=== PATIENT | female | born 1965 | race Caucasian/White ===

== ENCOUNTER 2018-02-25 11:38 | Inpatient (IN) | payer MEDICARE, MEDICAID ==
[~2018-02-25] VITALS: Ht 152.4 cm; Wt 44.0 kg
[2018-02-25] VITALS (7 sets, daily range): BP systolic 85–124; BP diastolic 52–67; PULSE 76–102; RESP 12–21; TEMP 97.5–99; O2SAT 93–96
[2018-02-25] MEDS ORDERED: cefTRIAXone INJ 2,000 MG in SODIUM CHLORIDE 0.9% INJ 100 ML IV STA (11:43)
[2018-02-25] MEDS ORDERED: AZITHROMYCIN INJ 500 MG in SODIUM CHLOR 0.9% 250 ML INJ 250 ML IV STA (11:43)
[2018-02-25] MEDS ORDERED: SODIUM CHLOR 0.9% 1000 ML INJ 1,000 ML IV ONE (11:43)
[2018-02-25] MEDS ORDERED: SODIUM CHLOR 0.9% 1000 ML INJ 800 ML IV ONE (11:43)
--- NOTE | 2018-02-25 11:57 | PD ---
HPI Chief Complaint: Respiratory Symptoms Time Seen by Provider: 11:41 Travel History International Travel<30 days: No Contact w/Intl Traveler<30days: No Traveled to known affect area: No History of Present Illness HPI Patient is a 53-year-old female with history of COPD, chronic neck pain who presents the emergency room from same-day surgery for evaluation of hypoxia as well as multilobar pneumonia. Patient was scheduled to have cervical fusion today with Dr. Gonzalez, patient was found to be hypoxic with a pulse ox of 88% on room air. Apparently, a chest ray was obtained and patient was found to have multilobar pneumonia. Patient was sent to the emergency room for evaluation. Patient reports that she has had a nonproductive cough for the past few days, denies any fevers or chills. Patient was found to be febrile at same day surgery with a temperature of 101. Patient was not given any antipyretics prior to being sent down to the emergency room. PFSH Past Medical History Cardiovascular Problems: Yes (CHF) Cerebrovascular Accident: Yes Respiratory: Yes (COPD) ?: Not Past Surgical History Hysterectomy: Yes Social History Tobacco Use: Yes Allergies-Medications (Allergen,Severity, Reaction): Coded Allergies: aspirin (Verified Allergy, Unknown, 02/25/18) gabapentin (Verified Allergy, Unknown, 02/25/18) Uncoded Allergies: iv contrast dye (Allergy, Unknown, 02/25/18) Reported Meds & Prescriptions Reported Meds & Active Scripts Active Reported Anoro Ellipta Inh (Umeclidinium/Vilanterol) 62.5-25 Mcg/Act Aero 1 Puff INH DAILY Trazodone (Trazodone HCl) 100 Mg Tablet 100 Mg PO HS Potassium Chloride ER (Potassium Chloride) 10 Meq Cap 10 Meq PO DAILY Naproxen 500 Mg Tab 500 Mg PO BID Morphine ER (Morphine Sulfate) 30 Mg Tab 30 Mg PO Q8H Amitiza (Lubiprostone) 8 Mcg Cap 8 Mg PO BID Duoneb (Ipratropium-Albuterol Neb) 0.5-2.5 Mg/3 Ml Neb 1 Nebule INH Q8HR NEB Hydrocodone-Acetaminophen 10-325 mg Tab 1 Tab PO Q8HR PRN Furosemide 20 Mg Tab 20 Mg PO DAILY Baclofen 10 Mg Tab 10 Mg PO TID Alprazolam 2 Mg Tab 2 Mg PO HS Proventil Hfa 6.7 GM Inh (Albuterol Sulfate) 90 Mcg/Act Aer 2 Puff INH Q6H PRN Review of Systems General / Constitutional: Positive: Fever Eyes: No: Visual changes HENT: No: Headaches Cardiovascular: No: Chest Pain or Discomfort Respiratory: Positive: Cough, Wheezing, No: Shortness of Breath Gastrointestinal: No: Abdominal Pain Genitourinary: No: Dysuria Musculoskeletal: No: Pain Skin: No Rash Neurologic: No: Weakness Psychiatric: No: Depression Endocrine: No: Polydipsia Hematologic/Lymphatic: No: Easy Bruising Physical Exam Narrative GENERAL: Moderate distress SKIN: Focused skin assessment warm/dry. HEAD: Atraumatic. Normocephalic. EYES: Pupils equal and round. No scleral icterus. No injection or drainage. ENT: No nasal bleeding or discharge. Mucous membranes pink and moist. NECK: Trachea midline. No JVD. CARDIOVASCULAR: Regular rate and rhythm. No murmur appreciated. RESPIRATORY: No accessory muscle use. Scattered wheezing. Breath sounds equal bilaterally. GASTROINTESTINAL: Abdomen soft, non-tender, nondistended. Hepatic and splenic margins not palpable. MUSCULOSKELETAL: No obvious deformities. No clubbing. No cyanosis. No edema. NEUROLOGICAL: Awake and alert. No obvious cranial nerve deficits. Motor grossly within normal limits. Normal speech. PSYCHIATRIC: Appropriate mood and affect; insight and judgment normal. Data Data Last Documented VS Vital Signs Date Time Temp Pulse Resp B/P (MAP) Pulse Ox O2 Delivery O2 Flow Rate FiO2 02/25/18 13:48 12 02/25/18 13:46 97.5 102 85/52 (63) 94 Nasal Cannula 2.00 Orders Orders Sepsis Workup Initiated (02/25/18 ) Complete Blood Count With Diff (02/25/18 11:42) Comprehensive Metabolic Panel (02/25/18 11:42) Prothrombin Time / Inr (Pt) (02/25/18 11:42) Act Partial Throm Time (Ptt) (02/25/18 11:42) Lactic Acid Sepsis Protocol (02/25/18 11:42) Magnesium (Mg) (02/25/18 11:42) Urinalysis - C+S If Indicated (02/25/18 11:42) Influenzae A/B Antigen (02/25/18 11:42) Blood Culture (02/25/18 11:42) Blood Glucose (02/25/18 11:42) Ecg Monitoring (02/25/18 11:42) Iv Access Insert/Monitor (02/25/18 11:42) Oximetry (02/25/18 11:42) Oxygen Administration (02/25/18 11:42) Ceftriaxone Inj (Rocephin Inj) (02/25/18 11:43) Azithromycin Inj (Zithromax Inj) (02/25/18 11:43) Sodium Chlor 0.9% 1000 Ml Inj (Ns 1000 M (02/25/18 11:43) Sodium Chlor 0.9% 1000 Ml Inj (Ns 1000 M (02/25/18 11:43) Arterial Blood Gas (Abg) (02/25/18 ) Chest, Single Ap (02/25/18 11:51) Acetaminophen (Tylenol) (02/25/18 12:00) Morphine Inj (Morphine Inj) (02/25/18 12:30) Methylprednisolone So Succ Inj (Solumedr (02/25/18 12:30) Albuterol-Ipratropium Neb (Duoneb Neb) (02/25/18 12:30) Admit Order (Ed Use Only) (02/25/18 13:59) Labs Laboratory Tests Test 02/25/18 12:00 02/25/18 12:03 02/25/18 12:28 White Blood Count 11.6 TH/MM3 Red Blood Count 4.01 MIL/MM3 Hemoglobin 10.6 GM/DL Hematocrit 32.6 % Mean Corpuscular Volume 81.1 FL Mean Corpuscular Hemoglobin 26.3 PG Mean Corpuscular Hemoglobin Concent 32.5 % Red Cell Distribution Width 15.5 % Platelet Count 203 TH/MM3 Mean Platelet Volume 8.5 FL Neutrophils (%) (Auto) 76.6 % Lymphocytes (%) (Auto) 13.5 % Monocytes (%) (Auto) 9.4 % Eosinophils (%) (Auto) 0.1 % Basophils (%) (Auto) 0.4 % Neutrophils # (Auto) 8.9 TH/MM3 Lymphocytes # (Auto) 1.6 TH/MM3 Monocytes # (Auto) 1.1 TH/MM3 Eosinophils # (Auto) 0.0 TH/MM3 Basophils # (Auto) 0.0 TH/MM3 CBC Comment DIFF FINAL Differential Comment Prothrombin Time 12.2 SEC Prothromb Time International Ratio 1.2 RATIO Activated Partial Thromboplast Time 35.4 SEC Blood Urea Nitrogen 13 MG/DL Creatinine 0.71 MG/DL Random Glucose 96 MG/DL Total Protein 6.4 GM/DL Albumin 2.8 GM/DL Calcium Level 8.4 MG/DL Magnesium Level 1.8 MG/DL Alkaline Phosphatase 71 U/L Aspartate Amino Transf (AST/SGOT) 14 U/L Alanine Aminotransferase (ALT/SGPT) 12 U/L Total Bilirubin 0.5 MG/DL Sodium Level 138 MEQ/L Potassium Level 3.7 MEQ/L Chloride Level 104 MEQ/L Carbon Dioxide Level 25.1 MEQ/L Anion Gap 9 MEQ/L Estimat Glomerular Filtration Rate 86 ML/MIN Lactic Acid Level 0.9 mmol/L Blood Gas Puncture Site RT RADIAL Blood Gas Patient Temperature 98.6 Blood Gas HCO3 27 mmol/L Blood Gas Base Excess 3.1 mmol/L Blood Gas Oxygen Saturation 84 % Arterial Blood pH 7.45 Arterial Blood Partial Pressure CO2 39 mmHg Arterial Blood Partial Pressure O2 55 mmHG Arterial Blood Oxygen Content 12.7 Vol % Arterial Blood Carboxyhemoglobin 5.4 % Arterial Blood Methemoglobin 0.8 % Blood Gas Hemoglobin 10.8 G/DL Blood Gas Inspired Oxygen 21 % Urine Color YELLOW Urine Turbidity CLEAR Urine pH 8.5 Urine Specific [place] 1.010 Urine Protein 30 mg/dL Urine Glucose (UA) NEG mg/dL Urine Ketones NEG mg/dL Urine Occult Blood TRACE Urine Nitrite NEG Urine Bilirubin NEG Urine Urobilinogen 1.0 MG/DL Urine Leukocyte Esterase NEG Urine RBC 5 /hpf Urine WBC LESS THAN 1 /hpf Urine Squamous Epithelial Cells <1 /hpf Microscopic Urinalysis Comment CATH-CULT NOT IND MDM Medical Decision Making Medical Screen Exam Complete: Yes Emergency Medical Condition: Yes Medical Record Reviewed: Yes Interpretation(s) Vital Signs Date Time Temp Pulse Resp B/P (MAP) Pulse Ox O2 Delivery O2 Flow Rate FiO2 02/25/18 11:49 22 93 Nasal Cannula 2.00 02/25/18 11:48 92 Nasal Cannula 2.00 02/25/18 11:42 99.0 95 21 105/61 (00) 93 Differential Diagnosis Pneumonia, pneumothorax, influenza, COPD exacerbation Narrative Course 53-year-old female who presents the emergency room for evaluation of multilobar pneumonia. Patient presents the emergency room hypoxic with a pulse ox of 88% on room air, she was febrile as per same day surgery, no antipyretics are given. Apparently patient did have an x-ray of her chest earlier today which showed multilobar pneumonia. Sepsis workup was initiated as patient was hypoxic and febrile upon presentation to ER. During the course of the patients emergency department visit, the patients history, examination, and differential diagnosis were reviewed with the patient. The patient was placed on a surveillance monitor with oximetry and frequent blood pressure monitoring. The patient had an IV access obtained and blood work sent for analysis. The patient was initially provided 30 cc/kg IV fluids, IV Rocephin as well as IV azithromycin. The patients laboratory studies were reviewed and remarkable for: Laboratory Tests Test 02/25/18 12:00 02/25/18 12:03 02/25/18 12:28 White Blood Count 11.6 TH/MM3 (4.0-11.0) Red Blood Count 4.01 MIL/MM3 (4.00-5.30) Hemoglobin 10.6 GM/DL (11.6-15.3) Hematocrit 32.6 % (35.0-46.0) Mean Corpuscular Volume 81.1 FL (80.0-100.0) Mean Corpuscular Hemoglobin 26.3 PG (27.0-34.0) Mean Corpuscular Hemoglobin Concent 32.5 % (32.0-36.0) Red Cell Distribution Width 15.5 % (11.6-17.2) Platelet Count 203 TH/MM3 (150-450) Mean Platelet Volume 8.5 FL (7.0-11.0) Neutrophils (%) (Auto) 76.6 % (16.0-70.0) Lymphocytes (%) (Auto) 13.5 % (9.0-44.0) Monocytes (%) (Auto) 9.4 % (0.0-8.0) Eosinophils (%) (Auto) 0.1 % (0.0-4.0) Basophils (%) (Auto) 0.4 % (0.0-2.0) Neutrophils # (Auto) 8.9 TH/MM3 (1.8-7.7) Lymphocytes # (Auto) 1.6 TH/MM3 (1.0-4.8) Monocytes # (Auto) 1.1 TH/MM3 (0-0.9) Eosinophils # (Auto) 0.0 TH/MM3 (0-0.4) Basophils # (Auto) 0.0 TH/MM3 (0-0.2) CBC Comment DIFF FINAL Differential Comment Prothrombin Time 12.2 SEC (9.8-11.6) Prothromb Time International Ratio 1.2 RATIO Activated Partial Thromboplast Time 35.4 SEC (24.3-30.1) Blood Urea Nitrogen 13 MG/DL (7-18) Creatinine 0.71 MG/DL (0.50-1.00) Random Glucose 96 MG/DL (74-106) Total Protein 6.4 GM/DL (6.4-8.2) Albumin 2.8 GM/DL (3.4-5.0) Calcium Level 8.4 MG/DL (8.5-10.1) Magnesium Level 1.8 MG/DL (1.5-2.5) Alkaline Phosphatase 71 U/L (45-117) Aspartate Amino Transf (AST/SGOT) 14 U/L (15-37) Alanine Aminotransferase (ALT/SGPT) 12 U/L (10-53) Total Bilirubin 0.5 MG/DL (0.2-1.0) Sodium Level 138 MEQ/L (136-145) Potassium Level 3.7 MEQ/L (3.5-5.1) Chloride Level 104 MEQ/L (98-107) Carbon Dioxide Level 25.1 MEQ/L (21.0-32.0) Anion Gap 9 MEQ/L (5-15) Estimat Glomerular Filtration Rate 86 ML/MIN (>89) Lactic Acid Level 0.9 mmol/L (0.4-2.0) Blood Gas Puncture Site RT RADIAL Blood Gas Patient Temperature 98.6 Blood Gas HCO3 27 mmol/L (22-26) Blood Gas Base Excess 3.1 mmol/L (-2-2) Blood Gas Oxygen Saturation 84 % (90-100) Arterial Blood pH 7.45 (7.380-7.420) Arterial Blood Partial Pressure CO2 39 mmHg (38-42) Arterial Blood Partial Pressure O2 55 mmHG (61-120) Arterial Blood Oxygen Content 12.7 Vol % (12.0-20.0) Arterial Blood Carboxyhemoglobin 5.4 % (0-4) Arterial Blood Methemoglobin 0.8 % (0-2) Blood Gas Hemoglobin 10.8 G/DL (12.0-16.0) Blood Gas Inspired Oxygen 21 % Urine Color YELLOW (YELLW/STRAW) Urine Turbidity CLEAR (CLEAR) Urine pH 8.5 (5.0-8.5) Urine Specific [place] 1.010 (1.002-1.035) Urine Protein 30 mg/dL (NEG-TRACE) Urine Glucose (UA) NEG mg/dL (NEG) Urine Ketones NEG mg/dL (NEG) Urine Occult Blood TRACE (NEG) Urine Nitrite NEG (NEG) Urine Bilirubin NEG (NEG) Urine Urobilinogen 1.0 MG/DL (LESS THAN Urine Leukocyte Esterase NEG (NEG) Urine RBC 5 /hpf (0-3) Urine WBC LESS THAN 1 /hpf (0-5) Urine Squamous Epithelial Cells <1 /hpf (0-5) Microscopic Urinalysis Comment CATH-CULT NOT IND . Radiology studies were reviewed and remarkable for Last Impressions Chest X-Ray 02/25/18 1151 Signed Impressions: Service Date/Time: Sunday, February 25, 2018 11:58 - CONCLUSION: Mild coarse interstitial opacity in both lung bases with no focal consolidation. The chronicity of this finding is not known and the differential diagnosis includes scarring and/or fibrosis. Deon Estevez MD patient re-evaluated, patient improved after steroids and duonebs Patient is hypoxic with a PaO2 of 84% on room air, she does have history of COPD and reports that she used to be on home oxygen, currently not on any oxygen. X-ray of the chest shows mild course interstitial opacity in both lungs with no focal consolidation, she has been pancultured and antibiotics for presumed sepsis was administered Case reviewed with Dr. Mora who accepts pt to service Critical Care Narrative Aggregate critical care time was 30 minutes. Time to perform other separately billable procedures was not included in the critical care time. My time did not include minutes spent treating any other patients simultaneously or on activities that did not directly contribute to the patient's treatment. The services I provided to this patient were to treat and/or prevent clinically significant deterioration that could result in: , decompensation, deterioration I provided critical care services requiring my management, as noted below: Chart data review, documentation time, medication orders and management, vital sign assessments/reviewing monitor data, ordering and reviewing lab tests, ordering and interpreting/reviewing x-rays and diagnostic studies, care of the patient and discussion of the patient with the admitting physicians. Diagnosis Primary Impression: Hypoxia Additional Impressions: Pneumonia COPD exacerbation Admitting Information Admitting Physician Requests: Admit Rae Diaz DO February 25, 2018 11:57
[2018-02-25] MEDS ORDERED: ACETAMINOPHEN 325 MG TAB PO ONE (12:00)
--- NOTE | 2018-02-25 12:23 | RADRPT ---
EXAM DATE/TIME: 02/25/2018 11:58 [facility] COMPARISON: No previous studies available for comparison. INDICATIONS : Cough, fever, and shortness of breath. MEDICAL HISTORY : None. SURGICAL HISTORY : None. ENCOUNTER: Initial ACUITY: 2 days PAIN SCORE: 0/10 LOCATION: Bilateral chest FINDINGS: A single AP erect portable view of the chest was obtained and demonstrates mild coarse interstitial o pacity in both lung bases with no focal consolidation or effusion. The heart and mediastinal structur es are within normal limits. The lungs are mildly hyperinflated. The bony thorax is intact. There are multiple overlying electrocardiogram leads. CONCLUSION: Mild coarse interstitial opacity in both lung bases with no focal consolidation. The chronicity of th is finding is not known and the differential diagnosis includes scarring and/or fibrosis. Deon Estevez MD on February 25, 2018 at 12:20 Board Certified Radiologist. This report was verified electronically.
[2018-02-25 12:29] LABS: AUTOMATED NEUTROPHIL # 8.9 TH/MM3 (1.8-7.7); BASOPHIL % 0.4 % (0.0-2.0); EOSINOPHIL % 0.1 % (0.0-4.0); HEMATOCRIT 32.6 % (35.0-46.0); HEMOGLOBIN 10.6 GM/DL (11.6-15.3); LYMPH % 13.5 % (9.0-44.0); LYMPHOCYTE # 1.6 TH/MM3 (1.0-4.8); MEAN CELL VOLUME 81.1 FL (80.0-100.0); MEAN CORPUSCULAR HEMOGLOBIN 26.3 PG (27.0-34.0); MEAN CORPUSCULAR HGB CONC 32.5 % (32.0-36.0); MEAN PLATELET VOLUME 8.5 FL (7.0-11.0); MONO % 9.4 % (0.0-8.0); MONOCYTE # 1.1 TH/MM3 (0-0.9); NEUT % 76.6 % (16.0-70.0); PLATELET COUNT 203 TH/MM3 (150-450); RED BLOOD COUNT 4.01 MIL/MM3 (4.00-5.30); RED CELL DISTRIBUTION WIDTH 15.5 % (11.6-17.2); WHITE BLOOD COUNT 11.6 TH/MM3 (4.0-11.0)
[2018-02-25] MEDS: RESP: ALBUTEROL 2.5 MG/IPRATROPIUM 0.5 MG NEB (SCH) INH ×3 (12:29→20:30)
[2018-02-25] MEDS ORDERED: MORPHINE SULFATE 2 MG/ML SYRINGE IV PUSH ONE (12:30)
[2018-02-25] MEDS ORDERED: methylPREDNISolone SOD SUCC 125 MG/2 ML VIAL IV PUSH ONE (12:30)
[2018-02-25 12:37] LABS: INTERNATIONAL NORMALIZED RATIO 1.2 RATIO; PROTHROMBIN TIME - PATIENT 12.2 SEC (9.8-11.6)
[2018-02-25 12:45] LABS: ALBUMIN 2.8 GM/DL (3.4-5.0); AST (GOT) 14 U/L (15-37); BICARBONATE 25.1 MEQ/L (21.0-32.0); BLOOD UREA NITROGEN 13 MG/DL (7-18); CALCIUM 8.4 MG/DL (8.5-10.1); CHLORIDE 104 MEQ/L (98-107); CREATININE 0.71 MG/DL (0.50-1.00); GLOMERULAR FILTRATION RATE 86 ML/MIN (>89); GLUCOSE,RANDOM 96 MG/DL (74-106); MAGNESIUM 1.8 MG/DL (1.5-2.5); SODIUM (NA) 138 MEQ/L (136-145)
[2018-02-25 12:48] LABS: ALKALINE PHOSPHATASE 71 U/L (45-117); ALT (GPT) 12 U/L (10-53); TOTAL BILIRUBIN ADULT 0.5 MG/DL (0.2-1.0); TOTAL PROTEIN 6.4 GM/DL (6.4-8.2)
[2018-02-25 13:04] LABS: BILIRUBIN, URINE NEG (NEG); GLUCOSE,URINE NEG (NEG); KETONE, URINE NEG (NEG); NITRITE,URINE NEG (NEG); PH, URINE 8.5 (5.0-8.5); URINE COLOR YELLOW (YELLW/STRAW); URINE LEUKOCYTE ESTERASE NEG (NEG)
[2018-02-25 13:07] LABS: BLOOD, URINE TRACE (NEG)
[2018-02-25 13:11] LABS: SQUAMOUS EPITHELIAL CELL URINE <1 /hpf (0-5)
[2018-02-25] MEDS ORDERED: ALPR2TAB3 PO (13:23)
[2018-02-25] MEDS ORDERED: IPRASOL INH (13:23)
[2018-02-25] MEDS ORDERED: ALBU6.7H INH (13:23)
[2018-02-25] MEDS ORDERED: UMEC1AER INH (13:23)
[2018-02-25] MEDS ORDERED: NAPR500T2 PO (13:23)
[2018-02-25] MEDS ORDERED: BACL10TA PO (13:23)
[2018-02-25] MEDS ORDERED: HYDR-3583 PO (13:23)
[2018-02-25] MEDS ORDERED: POTA10CA PO (13:23)
[2018-02-25] MEDS ORDERED: AMIT8CAP6 PO (13:23)
[2018-02-25] MEDS ORDERED: TRAZ100T10 PO (13:23)
[2018-02-25] MEDS ORDERED: FURO20TA PO (13:23)
[2018-02-25] MEDS ORDERED: MORP1TAB25 PO (13:23)
[2018-02-25] MEDS ORDERED: NALOXONE HCL 0.4 MG/ML AMP IV PUSH PRN (15:30)
[2018-02-25] MEDS ORDERED: BISACODYL 10 MG SUPP RECTAL PRN (15:30)
[2018-02-25] MEDS ORDERED: LACTULOSE SYRUP 20 GM/30 ML CUP PO PRN (15:30)
[2018-02-25] MEDS ORDERED: MAGNESIUM HYDROXIDE SUSP 30 ML CUP PO PRN (15:30)
[2018-02-25] MEDS ORDERED: SENNOSIDES 8.6 MG TAB PO PRN (15:30)
[2018-02-25] MEDS ORDERED: ONDANSETRON HCL 4 MG/2 ML VIAL IVP PRN (15:30)
[2018-02-25] MEDS ORDERED: SODIUM CHLORIDE 0.9% FLUSH 10 ML FLUSH IV FLUSH PRN (15:30)
[2018-02-25] MEDS ORDERED: RESP: ALBUTEROL 2.5 MG/IPRATROPIUM 0.5 MG NEB (SCH) INH (16:00)
[2018-02-25] MEDS: PIPERACIL-TAZO 4.5 GM PREMIX 100 ML IV SCH (16:29)
[2018-02-25] MEDS: SODIUM CHLOR 0.9% 1000 ML INJ 1,000 ML IV SCH (16:29)
[2018-02-25] MEDS: ENOXAPARIN SODIUM 40 MG/0.4 ML SYRINGE SQ SCH (17:00)
[2018-02-25] MEDS: methylPREDNISolone SOD SUCC 40 MG/1 ML VIAL IV PUSH SCH (17:00)
[2018-02-25] MEDS ORDERED: RESP: ALBUTEROL 2.5 MG/IPRATROPIUM 0.5 MG NEB (PRN) NEB (18:30)
[2018-02-25] MEDS: ALPRAZolam 1 MG TAB PO SCH (20:33)
[2018-02-25] MEDS: MORPHINE SULFATE 15 MG CONTROLLED RELEASE TAB PO SCH (20:34)
[2018-02-25] MEDS: DOCUSATE SODIUM 50 MG/SENNA 8.6 MG TAB PO SCH (20:34)
[2018-02-25] MEDS: ACETAMINOPHEN/HYDROcodone 325 MG/10 MG TAB PO PRN (20:35)
[2018-02-25] MEDS: SODIUM CHLORIDE 0.9% FLUSH 10 ML FLUSH IV FLUSH SCH (20:41)
[2018-02-25] MEDS ORDERED: LUBIPROSTONE 8 MG PO SCH (21:00)
[2018-02-25] MEDS ORDERED: [UNRECOGNIZED DRUG - OTHER] PO SCH (21:00)
--- NOTE | 2018-02-25 23:55 | HHI.HP ---
HPI Service [facility] Primary Care Physician Aldair Brasher, DO Admission Diagnosis COPD Exacerbation with hypoxia Diagnoses: Travel History International Travel<30 Days: No Contact w/Intl Traveler <30 Da: No Traveled to Known Affected Are: No History of Present Illness 53-year-old female with history of COPD, depression, chronic pain, who was initially scheduled for cervical spine surgery this morning, however found to have a fever of 100.9, heart rate 95. Patient reports a dry cough over the past 2 days. Denies any chest pain. Reports chronic shortness breath secondary to COPD. Denies any nausea or vomiting. Denies any diarrhea. Does report some mild constipation. Denies any dysuria. Review of Systems Except as stated in HPI: all other systems reviewed are Neg Past Family Social History Past Medical History COPD Chronic pain Depression Constipation Fibromyalgia Sarcoidosis CVA 0 Neuropathy Past Surgical History Tonsillectomy Cholecystectomy Appendectomy Hysterectomy History of median arcuate ligament lysis Reported Medications Reported Meds & Active Scripts Active Reported Anoro Ellipta Inh (Umeclidinium/Vilanterol) 62.5-25 Mcg/Act Aero 1 Puff INH DAILY Trazodone (Trazodone HCl) 100 Mg Tablet 100 Mg PO HS Potassium Chloride ER (Potassium Chloride) 10 Meq Cap 10 Meq PO DAILY Naproxen 500 Mg Tab 500 Mg PO BID Morphine ER (Morphine Sulfate) 30 Mg Tab 30 Mg PO Q8H Amitiza (Lubiprostone) 8 Mcg Cap 8 Mg PO BID Duoneb (Ipratropium-Albuterol Neb) 0.5-2.5 Mg/3 Ml Neb 1 Nebule INH Q8HR NEB Hydrocodone-Acetaminophen 10-325 mg Tab 1 Tab PO Q8HR PRN Furosemide 20 Mg Tab 20 Mg PO DAILY Baclofen 10 Mg Tab 10 Mg PO TID Alprazolam 2 Mg Tab 2 Mg PO HS Proventil Hfa 6.7 GM Inh (Albuterol Sulfate) 90 Mcg/Act Aer 2 Puff INH Q6H PRN Allergies: Coded Allergies: aspirin (Verified Allergy, Unknown, 02/25/18) gabapentin (Verified Allergy, Unknown, 02/25/18) Uncoded Allergies: iv contrast dye (Allergy, Unknown, 02/25/18) Family History Both parents with history of heart and lung disease. Both parents were heavy smokers Social History Patient is smoked 5 cigarettes per year for almost 40 years. Denies any drinking. Denies smoking. Physical Exam Vital Signs Vital Signs Date Time Temp Pulse Resp B/P (MAP) Pulse Ox O2 Delivery O2 Flow Rate FiO2 02/25/18 20:00 98.0 76 20 124/67 (86) 96 02/25/18 17:00 97.7 85 18 106/61 (76) 94 02/25/18 16:45 02/25/18 16:13 97.8 84 19 113/64 (80) 95 Nasal Cannula 2.00 02/25/18 14:13 95 19 94/52 (66) 93 Nasal Cannula 2.00 02/25/18 13:48 12 02/25/18 13:46 97.5 102 12 85/52 (63) 94 Nasal Cannula 2.00 02/25/18 12:31 94 Nasal Cannula 2.00 02/25/18 11:49 22 93 Nasal Cannula 2.00 02/25/18 11:48 92 Nasal Cannula 2.00 02/25/18 11:42 99.0 95 21 105/61 (76) 93 Physical Exam GENERAL: This is a well-nourished, well-developed patient, in no apparent distress. SKIN: No rashes, ecchymoses or lesions. Cool and dry. HEAD: Atraumatic. Normocephalic. No temporal or scalp tenderness. EYES: Pupils equal round and reactive. Extraocular motions intact. No scleral icterus. No injection or drainage. ENT: Nose without bleeding, purulent drainage or septal hematoma. Throat without erythema, tonsillar hypertrophy or exudate. Uvula midline. Airway patent. NECK: Trachea midline. No JVD or lymphadenopathy. Supple, nontender, no meningeal signs. CARDIOVASCULAR: Regular rate and rhythm without murmurs, gallops, or rubs. RESPIRATORY: wheezes bilaterally. No rhonchi. Dry crackles at bases. GASTROINTESTINAL: Abdomen soft, non-tender, nondistended. No hepato-splenomegaly , or palpable masses. No guarding. MUSCULOSKELETAL: Extremities without clubbing, cyanosis, or edema. No joint tenderness, effusion, or edema noted. No calf tenderness. Negative Homans sign bilaterally. NEUROLOGICAL: Awake and alert. Cranial nerves II through XII intact. Motor and sensory grossly within normal limits. Five out of 5 muscle strength in all muscle groups. Normal speech. Laboratory Laboratory Tests Test 02/25/18 12:00 02/25/18 12:03 02/25/18 12:28 White Blood Count 11.6 Red Blood Count 4.01 Hemoglobin 10.6 Hematocrit 32.6 Mean Corpuscular Volume 81.1 Mean Corpuscular Hemoglobin 26.3 Mean Corpuscular Hemoglobin Concent 32.5 Red Cell Distribution Width 15.5 Platelet Count 203 Mean Platelet Volume 8.5 Neutrophils (%) (Auto) 76.6 Lymphocytes (%) (Auto) 13.5 Monocytes (%) (Auto) 9.4 Eosinophils (%) (Auto) 0.1 Basophils (%) (Auto) 0.4 Neutrophils # (Auto) 8.9 Lymphocytes # (Auto) 1.6 Monocytes # (Auto) 1.1 Eosinophils # (Auto) 0.0 Basophils # (Auto) 0.0 CBC Comment DIFF FINAL Differential Comment Prothrombin Time 12.2 Prothromb Time International Ratio 1.2 Activated Partial Thromboplast Time 35.4 Blood Urea Nitrogen 13 Creatinine 0.71 Random Glucose 96 Total Protein 6.4 Albumin 2.8 Calcium Level 8.4 Magnesium Level 1.8 Alkaline Phosphatase 71 Aspartate Amino Transf (AST/SGOT) 14 Alanine Aminotransferase (ALT/SGPT) 12 Total Bilirubin 0.5 Sodium Level 138 Potassium Level 3.7 Chloride Level 104 Carbon Dioxide Level 25.1 Anion Gap 9 Estimat Glomerular Filtration Rate 86 Lactic Acid Level 0.9 Blood Gas Puncture Site RT RADIAL Blood Gas Patient Temperature 98.6 Blood Gas HCO3 27 Blood Gas Base Excess 3.1 Blood Gas Oxygen Saturation 84 Arterial Blood pH 7.45 Arterial Blood Partial Pressure CO2 39 Arterial Blood Partial Pressure O2 55 Arterial Blood Oxygen Content 12.7 Arterial Blood Carboxyhemoglobin 5.4 Arterial Blood Methemoglobin 0.8 Blood Gas Hemoglobin 10.8 Blood Gas Inspired Oxygen 21 Urine Color YELLOW Urine Turbidity CLEAR Urine pH 8.5 Urine Specific [place] 1.010 Urine Protein 30 Urine Glucose (UA) NEG Urine Ketones NEG Urine Occult Blood TRACE Urine Nitrite NEG Urine Bilirubin NEG Urine Urobilinogen 1.0 Urine Leukocyte Esterase NEG Urine RBC 5 Urine WBC LESS THAN 1 Urine Squamous Epithelial Cells <1 Microscopic Urinalysis Comment CATH-CULT NOT IND Date/Time Source Procedure Growth Status 02/25/18 11:50 Blood Peripheral Aerobic Blood Culture Pending Received 02/25/18 11:50 Blood Peripheral Anaerobic Blood Culture Pending Received 02/25/18 12:16 Nasal Aspirate Influenza Types A,B Antigen (AYLA) - Final NEGATIVE FOR FLU A AND B ANTIGEN.... Complete Result Diagram: 02/25/18 1200 02/25/18 1200 Caprini VTE Risk Assessment Caprini VTE Risk Assessment: No/Low Risk (score <= 1) Caprini Risk Assessment Model Point Value = 1 Point Value = 2 Point Value = 3 Point Value = 5 Age 41-60 Minor surgery BMI > 25 kg/m2 Swollen legs Varicose veins or History of unexplained or recurrent spontaneous Oral contraceptives or hormone replacement Sepsis (< 1 month) Serious lung disease, including pneumonia (< 1 month) Abnormal pulmonary function Acute myocardial infarction Congestive heart failure (< 1 month) History of inflammatory bowel disease Medical patient at bed rest Age 61-74 Arthroscopic surgery Major open surgery (> 45 min) Laparoscopic surgery (> 45 min) Malignancy Confined to bed (> 72 hours) Immobilizing plaster cast Central venous access Age >= 75 History of VTE Family history of VTE Factor V Leiden Prothrombin [id number] Lupus anticoagulant Anticardiolipin antibodies Elevated serum homocysteine Heparin-induced thrombocytopenia Other congenital or acquired thrombophilia Stroke (< 1 month) Elective arthroplasty Hip, pelvis, or leg fracture Acute spinal cord injury (< 1 month) Prophylaxis Regimen Total Risk Factor Score Risk Level Prophylaxis Regimen 0-1 Low Early ambulation 2 Moderate Order ONE of the following: *Sequential Compression Device (SCD) *Heparin 5000 units SQ BID 3-4 Higher Order ONE of the following medications: *Heparin 5000 units SQ TID *Enoxaparin/Lovenox 40 mg SQ daily (WT < 150 kg, CrCl > 30 mL/min) *Enoxaparin/Lovenox 30 mg SQ daily (WT < 150 kg, CrCl > 10-29 mL/min) *Enoxaparin/Lovenox 30 mg SQ BID (WT < 150 kg, CrCl > 30 mL/min) AND/OR *Sequential Compression Device (SCD) 5 or more Highest Order ONE of the following medications: *Heparin 5000 units SQ TID (Preferred with Epidurals) *Enoxaparin/Lovenox 40 mg SQ daily (WT < 150 kg, CrCl > 30 mL/min) *Enoxaparin/Lovenox 30 mg SQ daily (WT < 150 kg, CrCl > 10-29 mL/min) *Enoxaparin/Lovenox 30 mg SQ BID (WT < 150 kg, CrCl > 30 mL/min) AND *Sequential Compression Device (SCD) Assessment and Plan Assessment and Plan //Sepsis = Tachycardia, leukocytosis over 12 this morning(please see other profile under different H number) = Influenza negative. Urinalysis clean. Blood cultures pending. Chest x-ray with possible aspiration pneumonia. (Please see chest x-ray from different H- number) = Broad-spectrum antibiotics. //Polypharmacy. //Chronic pain = We will decrease home narcotics slightly. Avoid oversedation, possible aspiration. //Community-acquired suspected possible aspiration Pneumonia = Chest x-ray from imaging Center reports infiltrate of likely aspiration or infectious etiology. = Continue broad-spectrum antibiotics for coverage of anaerobes, gram negatives COPD exacerbation //Hypoxemic respiratory failure -ABG with PO2 of 55 on room air. = Steroids, DuoNeb's, broad-spectrum antibiotics. Tobacco abuse. Cessation counseling provided. Discussed Condition With patient, nurse, ED physician. Physician Certification 2 Midnight Certification Type: Admission for Inpatient Services Order for Inpatient Services The services are ordered in accordance with Medicare regulations or non- Medicare payer requirements, as applicable. In the case of services not specified as inpatient-only, they are appropriately provided as inpatient services in accordance with the 2-midnight benchmark. Estimated LOS (days): 2 days is the estimated time the patient will need to remain in the hospital, assuming treatment plan goals are met and no additional complications. Post-Hospital Plan: Home Peter Mora MD February 25, 2018 23:55
[2018-02-26] VITALS (12 sets, daily range): BP systolic 107–130; BP diastolic 58–69; PULSE 50–69; RESP 16–20; TEMP 97.3–97.9; O2SAT 92–96
[2018-02-26] MEDS: methylPREDNISolone SOD SUCC 40 MG/1 ML VIAL IV PUSH SCH ×4 (00:05→21:31)
[2018-02-26] MEDS: PIPERACIL-TAZO 4.5 GM PREMIX 100 ML IV SCH ×5 (00:07→22:35)
[2018-02-26] MEDS: SODIUM CHLOR 0.9% 1000 ML INJ 1,000 ML IV SCH ×3 (00:17→21:31)
[2018-02-26] MEDS ORDERED: MAGNESIUM HYDROXIDE SUSP 30 ML CUP PO ONE (01:00)
[2018-02-26] MEDS ORDERED: DOCUSATE SODIUM 50 MG/SENNA 8.6 MG TAB PO ONE (01:00)
[2018-02-26] MEDS: RESP: ALBUTEROL 2.5 MG/IPRATROPIUM 0.5 MG NEB (SCH) INH ×4 (01:02→23:48)
[2018-02-26] MEDS: traZODone HCL 100 MG TAB PO SCH ×2 (01:05→21:31)
[2018-02-26] MEDS: guaiFENesin/DEXTROMETHORPHAN 200 MG/20 MG/10 ML CUP PO PRN ×2 (01:05→05:24)
[2018-02-26] MEDS: MORPHINE SULFATE 15 MG CONTROLLED RELEASE TAB PO SCH ×3 (05:19→21:31)
[2018-02-26] MEDS: ACETAMINOPHEN/HYDROcodone 325 MG/10 MG TAB PO PRN ×2 (05:19→22:36)
[2018-02-26 06:03] LABS: AUTOMATED NEUTROPHIL # 8.8 TH/MM3 (1.8-7.7); BASOPHIL % 0.1 % (0.0-2.0); HEMATOCRIT 30.8 % (35.0-46.0); HEMOGLOBIN 10.2 GM/DL (11.6-15.3); LYMPHOCYTE # 0.8 TH/MM3 (1.0-4.8); MEAN CORPUSCULAR HEMOGLOBIN 26.9 PG (27.0-34.0); MEAN CORPUSCULAR HGB CONC 33.2 % (32.0-36.0); MEAN PLATELET VOLUME 8.4 FL (7.0-11.0); MONO % 2.8 % (0.0-8.0); MONOCYTE # 0.3 TH/MM3 (0-0.9); NEUT % 89.1 % (16.0-70.0); PLATELET COUNT 180 TH/MM3 (150-450); RED CELL DISTRIBUTION WIDTH 15.5 % (11.6-17.2); WHITE BLOOD COUNT 9.8 TH/MM3 (4.0-11.0)
[2018-02-26 06:28] LABS: ALBUMIN 2.5 GM/DL (3.4-5.0); ALT (GPT) 19 U/L (10-53); AST (GOT) 23 U/L (15-37); BICARBONATE 25.9 MEQ/L (21.0-32.0); BLOOD UREA NITROGEN 13 MG/DL (7-18); CALCIUM 8.2 MG/DL (8.5-10.1); CHLORIDE 111 MEQ/L (98-107); CREATININE 0.58 MG/DL (0.50-1.00); GLOMERULAR FILTRATION RATE 109 ML/MIN (>89); GLUCOSE,RANDOM 150 MG/DL (74-106); SODIUM (NA) 145 MEQ/L (136-145)
[2018-02-26 06:31] LABS: ALKALINE PHOSPHATASE 98 U/L (45-117); TOTAL BILIRUBIN ADULT 0.3 MG/DL (0.2-1.0); TOTAL PROTEIN 6.2 GM/DL (6.4-8.2)
[2018-02-26] MEDS: DOCUSATE SODIUM 50 MG/SENNA 8.6 MG TAB PO SCH ×2 (09:03→20:10)
[2018-02-26] MEDS: SODIUM CHLORIDE 0.9% FLUSH 10 ML FLUSH IV FLUSH SCH ×2 (09:03→20:11)
[2018-02-26] MEDS: UMECLIDINIUM 62.5 MCG/VILANTEROL 25 MCG INHALER INH SCH (09:03)
[2018-02-26] MEDS: BACLOFEN 10 MG TAB PO SCH ×3 (09:10→18:07)
--- NOTE | 2018-02-26 09:53 | HHI.PR ---
Subjective Remarks She seen and examined this morning. Vitals are stable and the patient is afebrile. Reports still having cough and SOB. Asking for her valium. Asking for her doctor of nursing practice to come see her. Objective Vital Signs Date Time Temp Pulse Resp B/P (MAP) Pulse Ox O2 Delivery O2 Flow Rate FiO2 02/26/18 09:13 94 21 02/26/18 08:00 97.5 50 18 125/69 (87) 95 02/26/18 06:07 56 02/26/18 04:00 97.3 59 20 121/65 (83) 92 02/26/18 01:05 96 Nasal Cannula 2.00 02/26/18 00:00 97.7 64 20 107/63 (78) 94 02/25/18 20:00 98.0 76 20 124/67 (86) 96 02/25/18 17:00 97.7 85 18 106/61 (76) 94 02/25/18 16:45 02/25/18 16:13 97.8 84 19 113/64 (80) 95 Nasal Cannula 2.00 02/25/18 14:13 95 19 94/52 (66) 93 Nasal Cannula 2.00 02/25/18 13:48 12 02/25/18 13:46 97.5 102 12 85/52 (63) 94 Nasal Cannula 2.00 02/25/18 12:31 94 Nasal Cannula 2.00 02/25/18 11:49 22 93 Nasal Cannula 2.00 02/25/18 11:48 92 Nasal Cannula 2.00 02/25/18 11:42 99.0 95 21 105/61 (76) 93 I/O 02/25/18 02/25/18 02/25/18 02/26/18 02/26/18 02/26/18 07:00 15:00 23:00 07:00 15:00 23:00 Intake Total 2350 ml 2640 ml Balance 2350 ml 2640 ml Intake Oral 1440 ml IV Total 2350 ml 1200 ml # Voids 1 4 # Bowel Movements 1 Result Diagram: 02/26/18 0418 02/26/18 0418 Imaging Last Impressions Chest X-Ray 02/25/18 1151 Signed Impressions: Service Date/Time: Sunday, February 25, 2018 11:58 - CONCLUSION: Mild coarse interstitial opacity in both lung bases with no focal consolidation. The chronicity of this finding is not known and the differential diagnosis includes scarring and/or fibrosis. Deon Estevez MD Objective Remarks GENERAL: Well-appearing, no acute distress SKIN: Warm and dry. HEAD: Normocephalic. EYES: No scleral icterus. No injection or drainage. NECK: Supple, trachea midline. No JVD or lymphadenopathy. CARDIOVASCULAR: Regular rate and rhythm without murmurs, gallops, or rubs. RESPIRATORY: Diffuse expiratory wheezing bilaterally. GASTROINTESTINAL: Abdomen soft, non-tender, nondistended. MUSCULOSKELETAL: No cyanosis, or edema. A/P Problem List: (1) COPD exacerbation ICD Code: J44.1 - Chronic obstructive pulmonary disease with (acute) exacerbation Status: Acute (2) Pneumonia ICD Code: J18.9 - Pneumonia, unspecified organism Status: Acute Assessment and Plan In summary this is a 53-year-old female patient with history of COPD, depression who was scheduled for cervical spine surgery on the morning of 2017 but then was found to have a fever of 100.9 and an elevated heart rate so was sent to the ER to be evaluated, CXR concerning for PNA. (apparently patient has a different hospital encounter with a different H number, imaging available there). Immunity acquired pneumonia versus hospital-acquired pneumonia Chest x-ray from outpatient center reports an infiltrate concerning for aspiration pneumonia She received a dose of Rocephin and azithromycin in the ER, currently on azithromycin and Zosyn COPD Patient currently being treated for exacerbation Duo nebs, albuterol Solu-Medrol 40 mg IV q8hrs Consult patients doctor of nursing practice. Depression Continue patient's trazodone and alprazolam Neck pain Continue home meds DVT prophylaxis with Lovenox Discharge Planning D/C pending clinical stabilization Yolanda Cobian MD February 26, 2018 09:53
[2018-02-26] MEDS ORDERED: DIAZ10 PO (10:33)
[2018-02-26] MEDS: DIAZEPAM 10 MG TAB PO SCH ×2 (13:16→18:07)
[2018-02-26] MEDS: AZITHROMYCIN INJ 500 MG in SODIUM CHLOR 0.9% 250 ML INJ 250 ML IV SCH (16:17)
[2018-02-26] MEDS: ENOXAPARIN SODIUM 40 MG/0.4 ML SYRINGE SQ SCH (16:39)
--- NOTE | 2018-02-26 19:42 | MB ---
cc: lAfred Kingston MD, V J MD DATE: 02/26/2018 REASON FOR CONSULTATION: COPD and respiratory distress HISTORY OF PRESENT ILLNESS: This is a 53 year-old lady with a longstanding history of COPD and emphysema and history of chronic smoking who was initially scheduled for C-spine surgery for chronic radiculopathy. Upon arrival at the hospital, she was found to have a fever of over 100 degrees and a persistent cough with wheezing and shortness of breath and was hypoxic. The patient was then advised pulmonary evaluation and admission to the hospital and was placed on O2 at 2 liters. She has been bringing up a little thick, whitish, yellow mucus and complained of chest tightness. She also has chronic radicular pain in her neck and has had some sinus drainage as well. She was hypoxic upon admission. Presently, her O2 saturations are up to 95% on 3 liters of oxygen. She denies hemoptysis, but has lost weight over the past few months. PAST MEDICAL HISTORY: The patient's past history is significant for chronic neck pain, history of depression and anxiety, history of fibromyalgia and a past history for sarcoidosis. She has had peripheral neuropathy. PAST SURGICAL HISTORY: Includes appendectomy, tonsillectomy, cholecystectomy, hysterectomy and lysis of the medial arcuate ligament. ALLERGIES: ASPIRIN, GABAPENTIN AND IV CONTRAST. HABITS: The patient smokes 1/2 to 1 pack per day, has done so for over 40 years. FAMILY HISTORY: Significant for lung disease in both parents. There is a longstanding history of smoking. REVIEW OF SYSTEMS: The patient has lost weight. She has dizziness, postnasal drip, cough, neck pain to lower back pain. Denies any abdominal pains, nausea or vomiting. She has no leg swelling or calf muscle pains. She has some joint pains of her extremities and denies skin lesions. She has depression with anxiety. MEDICATIONS: 1. Anura Ellipta 1 puff a day 2. Amitiza 8 mg b.i.d. 3. Lortab 100/325 mg one q. 6 hours p.r.n. 4. Lasix 20 mg a day. 5. Xanax 2 mg at bedtime. 6. Proventil 2 puffs p.r.n. 7. Trazodone 100 mg at bedtime 9. Naprosyn p.r.n. PHYSICAL EXAMINATION: GENERAL: This is a thinly built middle-aged white female who is pale and dyspneic. She has mild clubbing. No peripheral edema. Skin turgor was diminished. VITAL SIGNS: Blood pressure 110/60, pulse is 86, respirations are 18, temperature 98.2. HEENT: Head is normocephalic. Pupils are reactive and equal. Tongue is dry. Throat is injected. Nasal mucosa is clear. NECK: Supple. No bruits or thyroid enlargement or lymphadenopathy. CHEST: Equal movements with an increased AP diameter with diffuse wheezes throughout both lung sandoval, prolonged expirations. HEART: The heart sounds are irregular S1 and S2 with no murmur. No S3 gallop. ABDOMEN: Soft, scaphoid, without masses. No organomegaly or tenderness. Bowel sounds active. EXTREMITIES: No lesions, no edema. Peripheral pulses are diminished. NEUROLOGIC: Reflexes are 1+ with no gross motor deficits. Cranial nerves are grossly intact. SKIN: No lesions are observed. IMPRESSION.: 1. Chronic obstructive pulmonary disease with acute exacerbation. 2. Chronic radiculopathy. 3. Possible basilar pneumonia and interstitial lung disease 4. Nicotine dependency. PLAN: The patient has been started on antibiotic coverage, which we will continue including Zithromax 500 mg IV daily and Zosyn 3.375 grams IV q 6. She will be placed on DuoNeb solution q.i.d. and p.r.n. O2 at 3 liters nasal cannula. Symbicort 160/4.5 mcg 2 puffs twice a day. Sputum will be sent for Gram stain and culture. The patient was counseled about quitting cigarette smoking and use a nicotine patch. Solu-Medrol continued at 40 mg IV every 8 hours. Thank you, Dr. Mora, for this consultation. Alfred Kingston MD VCAN/ , 06:46 PM , 07:41 PM
[2018-02-26] MEDS: BUDESONIDE-FORMOTEROL 160/4.5 MCG INHALER INH SCH (20:11)
[2018-02-26] MEDS: ALPRAZolam 1 MG TAB PO SCH (20:11)
[2018-02-27] VITALS (9 sets, daily range): BP systolic 133–158; BP diastolic 71–87; PULSE 50–70; RESP 16–18; TEMP 97.4–97.7; O2SAT 93–98
[2018-02-27] MEDS: ACETAMINOPHEN/HYDROcodone 325 MG/10 MG TAB PO PRN ×3 (02:51→18:41)
[2018-02-27] MEDS: guaiFENesin/DEXTROMETHORPHAN 200 MG/20 MG/10 ML CUP PO PRN (04:22)
[2018-02-27] MEDS: PIPERACIL-TAZO 4.5 GM PREMIX 100 ML IV SCH ×4 (05:26→23:26)
[2018-02-27] MEDS: methylPREDNISolone SOD SUCC 40 MG/1 ML VIAL IV PUSH SCH (05:26)
[2018-02-27] MEDS: MORPHINE SULFATE 15 MG CONTROLLED RELEASE TAB PO SCH ×3 (05:28→21:06)
[2018-02-27] MEDS: SODIUM CHLOR 0.9% 1000 ML INJ 1,000 ML IV SCH (07:24)
[2018-02-27 08:04] LABS: AUTOMATED NEUTROPHIL # 14.5 TH/MM3 (1.8-7.7); BASOPHIL % 0.2 % (0.0-2.0); HEMATOCRIT 31.8 % (35.0-46.0); HEMOGLOBIN 10.2 GM/DL (11.6-15.3); LYMPH % 6.3 % (9.0-44.0); MEAN CELL VOLUME 81.3 FL (80.0-100.0); MEAN PLATELET VOLUME 8.3 FL (7.0-11.0); MONO % 4.5 % (0.0-8.0); MONOCYTE # 0.7 TH/MM3 (0-0.9); PLATELET COUNT 247 TH/MM3 (150-450); RED BLOOD COUNT 3.91 MIL/MM3 (4.00-5.30); WHITE BLOOD COUNT 16.4 TH/MM3 (4.0-11.0)
[2018-02-27 08:28] LABS: BICARBONATE 26.8 MEQ/L (21.0-32.0); CALCIUM 8.3 MG/DL (8.5-10.1); CREATININE 0.63 MG/DL (0.50-1.00)
[2018-02-27] MEDS: DOCUSATE SODIUM 50 MG/SENNA 8.6 MG TAB PO SCH ×2 (08:32→08:37)
[2018-02-27] MEDS: DIAZEPAM 10 MG TAB PO SCH ×3 (08:32→17:15)
[2018-02-27] MEDS: BACLOFEN 10 MG TAB PO SCH ×3 (08:32→17:15)
[2018-02-27] MEDS: BUDESONIDE-FORMOTEROL 160/4.5 MCG INHALER INH SCH ×2 (08:33→21:03)
[2018-02-27] MEDS: SODIUM CHLORIDE 0.9% FLUSH 10 ML FLUSH IV FLUSH SCH ×2 (08:33→21:04)
[2018-02-27] MEDS: UMECLIDINIUM 62.5 MCG/VILANTEROL 25 MCG INHALER INH SCH (08:37)
--- NOTE | 2018-02-27 09:13 | HHI.PR ---
Subjective Remarks She seen and examined this morning. Vitals are stable and the patient is afebrile. Patient states she feels worse today. Cough she states is uncontrollable, Robitussin not helping. Experiences SOB with walking. Had diarrhea that kept her up all night. She had previously been struggling with constipation. Her physician on outpatient had started her on something for constipation, in addition to that she has been taking her stool softeners. She had not had a BM for two weeks prior to last night. Objective Vital Signs Date Time Temp Pulse Resp B/P (MAP) Pulse Ox O2 Delivery O2 Flow Rate FiO2 02/27/18 08:00 97.4 50 18 133/87 (102) 97 02/27/18 04:00 97.7 62 18 135/71 (92) 95 02/27/18 03:39 64 02/26/18 23:57 63 02/26/18 23:52 93 21 02/26/18 22:37 Nasal Cannula 2.00 02/26/18 20:02 69 02/26/18 20:00 97.9 53 16 130/58 (82) 92 02/26/18 16:00 97.8 56 18 117/68 (84) 94 02/26/18 12:00 97.9 59 18 125/66 (85) 93 02/26/18 09:13 94 21 I/O 02/26/18 02/26/18 02/26/18 02/27/18 02/27/18 02/27/18 07:00 15:00 23:00 07:00 15:00 23:00 Intake Total 2640 ml 2200 ml 340 ml Balance 2640 ml 2200 ml 340 ml Intake Oral 1440 ml 1200 ml 240 ml IV Total 1200 ml 1000 ml 100 ml # Voids 4 5 4 # Bowel Movements 1 0 Result Diagram: 02/27/18 0646 02/27/18 0646 Imaging Last Impressions Chest X-Ray 02/25/18 1151 Signed Impressions: Service Date/Time: Sunday, February 25, 2018 11:58 - CONCLUSION: Mild coarse interstitial opacity in both lung bases with no focal consolidation. The chronicity of this finding is not known and the differential diagnosis includes scarring and/or fibrosis. Deon Estevez MD Objective Remarks GENERAL: Appears uncomfortable. Thin woman. SKIN: Warm and dry. HEAD: Normocephalic. EYES: No scleral icterus. No injection or drainage. NECK: Supple, trachea midline. No JVD or lymphadenopathy. CARDIOVASCULAR: Regular rate and rhythm without murmurs, gallops, or rubs. RESPIRATORY: Diffuse expiratory wheezing bilaterally, significant dry cough throughout the exam. GASTROINTESTINAL: Abdomen soft, non-tender, nondistended. MUSCULOSKELETAL: No cyanosis, or edema. A/P Problem List: (1) COPD exacerbation ICD Code: J44.1 - Chronic obstructive pulmonary disease with (acute) exacerbation Status: Acute (2) Pneumonia ICD Code: J18.9 - Pneumonia, unspecified organism Status: Acute Assessment and Plan In summary this is a 53-year-old female patient with history of COPD, depression who was scheduled for cervical spine surgery on the morning of 2017 but then was found to have a fever of 100.9 and an elevated heart rate so was sent to the ER to be evaluated, CXR concerning for PNA and had hypoxia in the ER. (apparently patient has a different hospital encounter with a different H number, imaging available there). Immunity acquired pneumonia versus hospital-acquired pneumonia Chest x-ray from outpatient center reports an infiltrate concerning for aspiration pneumonia She received a dose of Rocephin and azithromycin in the ER, currently on azithromycin and Zosyn COPD Patient currently being treated for exacerbation Duo nebs, albuterol Solu-Medrol 40 mg IV q8hrs--> will increase to 60 mg q 8hrs given worsening exam Hydrocan for cough Incentive spirometer Home walk test Seen and evaluated by pulm Smoking cessation Diarrhea hold laxatives and stool softers c. diff Depression Continue patient's trazodone and alprazolam & valium Neck pain Continue home meds DVT prophylaxis with Lovenox Discharge Planning D/C pending clinical stabilization Yolanda Cobian MD February 27, 2018 09:13
[2018-02-27] MEDS: RESP: ALBUTEROL 2.5 MG/IPRATROPIUM 0.5 MG NEB (SCH) INH ×2 (09:25→21:09)
[2018-02-27] MEDS ORDERED: RESP: ACETYLCYSTEINE 10% 10 ML NEB NEB SCH (10:00)
[2018-02-27] MEDS: HYDROcodone 5 MG/HOMATROPINE 1.5 MG SYRUP 5 ML CUP PO PRN ×2 (13:03→18:41)
[2018-02-27] MEDS: methylPREDNISolone SOD SUCC 125 MG/2 ML VIAL IV PUSH SCH ×2 (14:04→21:06)
[2018-02-27] MEDS: AZITHROMYCIN INJ 500 MG in SODIUM CHLOR 0.9% 250 ML INJ 250 ML IV SCH (14:53)
--- NOTE | 2018-02-27 16:40 | HHI.PR ---
Subjective Remarks Still wheezing and coughing. On o2 3L No fever Objective Vital Signs Date Time Temp Pulse Resp B/P (MAP) Pulse Ox O2 Delivery O2 Flow Rate FiO2 02/27/18 12:00 97.7 70 18 135/76 (95) 96 02/27/18 09:27 93 21 02/27/18 08:00 97.4 50 18 133/87 (102) 97 02/27/18 08:00 Nasal Cannula 2.00 02/27/18 04:00 97.7 62 18 135/71 (92) 95 02/27/18 03:39 64 02/26/18 23:57 63 02/26/18 23:52 93 21 02/26/18 22:37 Nasal Cannula 2.00 02/26/18 20:02 69 02/26/18 20:00 97.9 53 16 130/58 (82) 92 I/O 02/26/18 02/26/18 02/26/18 02/27/18 02/27/18 02/27/18 07:00 15:00 23:00 07:00 15:00 23:00 Intake Total 2640 ml 2200 ml 340 ml Balance 2640 ml 2200 ml 340 ml Intake Oral 1440 ml 1200 ml 240 ml IV Total 1200 ml 1000 ml 100 ml # Voids 4 5 4 # Bowel Movements 1 0 Result Diagram: 02/27/18 0646 02/27/18 0646 Objective Remarks GENERAL: This is a thinly built middle-aged white female who is pale and dyspneic. She has mild clubbing. No peripheral edema. Skin turgor was diminished. HEENT: Head is normocephalic. Pupils are reactive and equal. Tongue is dry. Throat is injected. Nasal mucosa is clear. NECK: Supple. No bruits or thyroid enlargement or lymphadenopathy. CHEST: Equal movements with an increased AP diameter with diffuse wheezes throughout both lung sandoval, prolonged expirations. HEART: The heart sounds are irregular S1 and S2 with no murmur. No S3 gallop. ABDOMEN: Soft, scaphoid, without masses. No organomegaly or tenderness. Bowel sounds active. EXTREMITIES: No lesions, no edema. Peripheral pulses are diminished. NEUROLOGIC: Reflexes are 1+ with no gross motor deficits. Cranial nerves are grossly intact. SKIN: No lesions are observed. Assessment and Plan Assessment and Plan IMPRESSION.: 1. Chronic obstructive pulmonary disease with acute exacerbation. 2. Chronic radiculopathy. 3. Possible basilar pneumonia and interstitial lung disease 4. Nicotine dependency. Plan : 1. Continue antibiotics , Zosyn/Zithro 2. O2 2L. 3. Nesb qid , duoneb 4. Continue Symbicort 160/4.5 mcg , 2 puffsbid 5. Solumedrol 40 mg IV Q6H 6. CBC,BMP. Alfred Kingston MD February 27, 2018 16:40
[2018-02-27] MEDS: ENOXAPARIN SODIUM 40 MG/0.4 ML SYRINGE SQ SCH (17:15)
[2018-02-27] MEDS: traZODone HCL 100 MG TAB PO SCH (21:03)
[2018-02-27] MEDS: ALPRAZolam 1 MG TAB PO SCH (21:04)
[2018-02-27] MEDS: RESP: ACETYLCYSTEINE 10% 30 ML NEB NEB SCH (21:10)
[2018-02-28] VITALS (9 sets, daily range): BP systolic 134–174; BP diastolic 66–77; PULSE 44–58; RESP 16–18; TEMP 97.5–98.5; O2SAT 50–99
[2018-02-28] MEDS: ACETAMINOPHEN/HYDROcodone 325 MG/10 MG TAB PO PRN ×3 (02:48→18:37)
[2018-02-28] MEDS: RESP: ALBUTEROL 2.5 MG/IPRATROPIUM 0.5 MG NEB (SCH) INH ×4 (03:53→21:05)
[2018-02-28] MEDS: RESP: ACETYLCYSTEINE 10% 30 ML NEB NEB SCH ×4 (03:53→21:05)
[2018-02-28] MEDS: HYDROcodone 5 MG/HOMATROPINE 1.5 MG SYRUP 5 ML CUP PO PRN ×3 (04:43→17:14)
[2018-02-28] MEDS: PIPERACIL-TAZO 4.5 GM PREMIX 100 ML IV SCH ×3 (04:43→16:18)
[2018-02-28] MEDS: methylPREDNISolone SOD SUCC 125 MG/2 ML VIAL IV PUSH SCH ×3 (06:02→20:40)
[2018-02-28] MEDS: MORPHINE SULFATE 15 MG CONTROLLED RELEASE TAB PO SCH (06:02)
--- NOTE | 2018-02-28 06:27 | RADRPT ---
EXAM DATE/TIME: 02/28/2018 05:51 [place] COMPARISON: CHEST SINGLE AP, February 25, 2018, 11:58. INDICATIONS : Very short of breath, coughing for several days, evaluate infiltrates MEDICAL HISTORY : Chronic obstructive pulmonary disease. pneumonia SURGICAL HISTORY : None. ENCOUNTER: Subsequent ACUITY: 4 - 6 days PAIN SCORE: 2/10 LOCATION: Bilateral chest FINDINGS: A single view of the chest demonstrates widespread diffuse interstitial lung disease throughout the l ungs. There is blunting of the costophrenic angle suggesting pleural effusions. No visible pneumothor ax. Aorta mildly tortuous.. Osseous structures are intact. CONCLUSION: Basilar interstitial lung disease with small pleural effusions. Lee Goldman MD on February 28, 2018 at 6:26 Board Certified Radiologist. This report was verified electronically.
[2018-02-28 07:51] LABS: BASOPHIL % 0.2 % (0.0-2.0); HEMATOCRIT 33.9 % (35.0-46.0); HEMOGLOBIN 11.1 GM/DL (11.6-15.3); LYMPH % 11.2 % (9.0-44.0); LYMPHOCYTE # 0.9 TH/MM3 (1.0-4.8); MEAN CELL VOLUME 80.8 FL (80.0-100.0); MEAN CORPUSCULAR HEMOGLOBIN 26.5 PG (27.0-34.0); MEAN CORPUSCULAR HGB CONC 32.8 % (32.0-36.0); MEAN PLATELET VOLUME 7.9 FL (7.0-11.0); MONO % 4.7 % (0.0-8.0); MONOCYTE # 0.4 TH/MM3 (0-0.9); NEUT % 83.9 % (16.0-70.0); PLATELET COUNT 241 TH/MM3 (150-450); WHITE BLOOD COUNT 8.3 TH/MM3 (4.0-11.0)
[2018-02-28 08:13] LABS: BICARBONATE 25.9 MEQ/L (21.0-32.0); CALCIUM 8.5 MG/DL (8.5-10.1); CREATININE 0.75 MG/DL (0.50-1.00)
[2018-02-28] MEDS: DIAZEPAM 10 MG TAB PO SCH ×3 (08:51→17:13)
[2018-02-28] MEDS: UMECLIDINIUM 62.5 MCG/VILANTEROL 25 MCG INHALER INH SCH (08:51)
[2018-02-28] MEDS: BUDESONIDE-FORMOTEROL 160/4.5 MCG INHALER INH SCH ×2 (08:52→20:40)
[2018-02-28] MEDS: SODIUM CHLORIDE 0.9% FLUSH 10 ML FLUSH IV FLUSH SCH ×2 (08:52→20:42)
[2018-02-28] MEDS: BACLOFEN 10 MG TAB PO SCH ×3 (08:55→17:13)
--- NOTE | 2018-02-28 14:22 | HHI.PR ---
Subjective Remarks patient up in chair - states history of chronic pain- ff by pain management- on morphine also stated cocnern about ? lung mass - that she states is being ff by dr. chen Objective Vitals Vital Signs Date Time Temp Pulse Resp B/P (MAP) Pulse Ox O2 Delivery O2 Flow Rate FiO2 02/28/18 12:00 97.9 58 17 160/75 (103) 96 02/28/18 09:01 Nasal Cannula 2.00 02/28/18 08:53 96 Nasal Cannula 2.00 02/28/18 08:00 97.9 44 17 170/75 (106) 98 02/28/18 04:00 97.5 50 16 134/73 (93) 50 02/28/18 00:12 53 02/28/18 00:00 97.6 58 18 145/67 (93) 92 02/27/18 21:45 Nasal Cannula 2.00 02/27/18 21:13 98 Nasal Cannula 2.00 02/27/18 20:00 97.7 64 16 158/76 (103) 93 02/27/18 19:58 58 02/27/18 16:00 97.4 56 18 150/83 (105) 95 I/O 02/27/18 02/27/18 02/27/18 02/28/18 02/28/18 02/28/18 07:00 15:00 23:00 07:00 15:00 23:00 Intake Total 340 ml 960 ml 820 ml Output Total 10 ml Balance 340 ml 960 ml 810 ml Intake Oral 240 ml 960 ml 720 ml IV Total 100 ml 100 ml Output Urine Total 10 ml # Voids 4 5 # Bowel Movements 3 Result Diagram: 02/28/1872702/28/18 07 Imaging Last Impressions Chest X-Ray 02/28/18 0600 Signed Impressions: Service Date/Time: Wednesday, February 28, 2018 05:51 - CONCLUSION: Basilar interstitial lung disease with small pleural effusions. Lee Goldman MD Objective Remarks awake and alert,no oral thrush few inspiratory wheezes regular rhythm abdomen soft, good bowel sounds extremities no edema A/P Assessment and Plan In summary this is a 53-year-old female patient with history of COPD, depression who was scheduled for cervical spine surgery on the morning of 2017 but then was found to have a fever of 100.9 and an elevated heart rate so was sent to the ER to be evaluated, CXR concerning for PNA and had hypoxia in the ER. (apparently patient has a different hospital encounter with a different H number, imaging available there). Immunity acquired pneumonia versus hospital-acquired pneumonia Chest x-ray from outpatient center reports an infiltrate concerning for aspiration pneumonia She received a dose of Rocephin and azithromycin in the ER continue on azithromycin- = 3 days IV 500 mg on Zosyn- change to po levaquin COPD in exacerbation Duo nebs, albuterol continue on IV steroids - change to po tomorrow- still have some wheezing on exam- but patient able to speak in full sentences, appears comfortable- main concern is her pain meds Hydrocan for cough Incentive spirometer Home walk test-prior to DC at one point was on home 02- was DC- "don't need it" d/w her results of CXR- no mass- finding more of scarring- she ff with Dr. Chen as OP Smoking cessation Diarrhea hold laxatives and stool softers c. diff - negative Depression Continue patient's trazodone and alprazolam & valium chronic pain - patient states ff by pain management- [facility] neurololgy center on Morphine Continue home meds DVT prophylaxis with Elliott Soto MD February 28, 2018 14:22
[2018-02-28] MEDS: ENOXAPARIN SODIUM 40 MG/0.4 ML SYRINGE SQ SCH (16:18)
[2018-02-28] MEDS: AZITHROMYCIN INJ 500 MG in SODIUM CHLOR 0.9% 250 ML INJ 250 ML IV SCH (16:18)
--- NOTE | 2018-02-28 20:07 | HHI.PR ---
Subjective Remarks 53 YO WF with Severe COPD, Neck pain Mild cough no fever no CP Objective Vital Signs Vital Signs Date Time Temp Pulse Resp B/P (MAP) Pulse Ox O2 Delivery O2 Flow Rate FiO2 02/28/18 16:00 98.5 53 17 174/77 (109) 96 02/28/18 15:53 99 Nasal Cannula 2.00 02/28/18 12:00 97.9 58 17 160/75 (103) 96 02/28/18 09:01 Nasal Cannula 2.00 02/28/18 08:53 96 Nasal Cannula 2.00 02/28/18 08:00 97.9 44 17 170/75 (106) 98 02/28/18 04:00 97.5 50 16 134/73 (93) 50 02/28/18 00:12 53 02/28/18 00:00 97.6 58 18 145/67 (93) 92 02/27/18 21:45 Nasal Cannula 2.00 02/27/18 21:13 98 Nasal Cannula 2.00 I/O 02/27/18 02/27/18 02/27/18 02/28/18 02/28/18 02/28/18 07:00 15:00 23:00 07:00 15:00 23:00 Intake Total 340 ml 960 ml 820 ml 100 ml 2150 ml Output Total 10 ml Balance 340 ml 960 ml 810 ml 100 ml 2150 ml Intake Oral 240 ml 960 ml 720 ml 1800 ml IV Total 100 ml 100 ml 100 ml 350 ml Output Urine Total 10 ml # Voids 4 5 5 # Bowel Movements 3 4 Result Diagram: 02/28/18 0728 02/28/18727 Objective Remarks GENERAL: Thin built WF,NAD SKIN: Warm and dry. HEAD: Normocephalic. EYES: No scleral icterus. No injection or drainage. NECK: Supple, trachea midline. No JVD or lymphadenopathy. CARDIOVASCULAR: Regular rate and rhythm without murmurs, gallops, or rubs. RESPIRATORY: Breath sounds equal bilaterally. No accessory muscle use. GASTROINTESTINAL: Abdomen soft, non-tender, nondistended. MUSCULOSKELETAL: No cyanosis, or edema. BACK: Nontender without obvious deformity. No CVA tenderness. A/P Assessment and Plan IMPRESSION: Severe COPD Basal Infilt Neck pain PLAN: Cont Abx Aerosol nebs IV Solumedrol Supplement 02 Bobby Arana MD February 28, 2018 20:07
[2018-02-28] MEDS: MORPHINE SULFATE 30 MG CONTROLLED RELEASE TAB PO SCH (20:40)
[2018-02-28] MEDS: ALPRAZolam 1 MG TAB PO SCH (20:40)
[2018-02-28] MEDS: traZODone HCL 100 MG TAB PO SCH (20:40)
[2018-03-01] VITALS (7 sets, daily range): BP systolic 143–175; BP diastolic 70–85; PULSE 51–59; RESP 16–19; TEMP 97.1–97.8; O2SAT 95–99
[2018-03-01] MEDS: HYDROcodone 5 MG/HOMATROPINE 1.5 MG SYRUP 5 ML CUP PO PRN ×3 (00:09→13:35)
[2018-03-01] MEDS: PIPERACIL-TAZO 4.5 GM PREMIX 100 ML IV SCH ×3 (00:09→11:02)
[2018-03-01] MEDS: ACETAMINOPHEN/HYDROcodone 325 MG/10 MG TAB PO PRN ×2 (02:39→11:02)
[2018-03-01] MEDS: RESP: ACETYLCYSTEINE 10% 30 ML NEB NEB SCH ×3 (03:31→15:40)
[2018-03-01] MEDS: RESP: ALBUTEROL 2.5 MG/IPRATROPIUM 0.5 MG NEB (SCH) INH ×3 (03:31→15:40)
[2018-03-01] MEDS: MORPHINE SULFATE 30 MG CONTROLLED RELEASE TAB PO SCH ×2 (05:43→13:36)
[2018-03-01] MEDS: methylPREDNISolone SOD SUCC 125 MG/2 ML VIAL IV PUSH SCH ×2 (05:43→13:35)
[2018-03-01] MEDS: UMECLIDINIUM 62.5 MCG/VILANTEROL 25 MCG INHALER INH SCH (08:34)
[2018-03-01] MEDS: SODIUM CHLORIDE 0.9% FLUSH 10 ML FLUSH IV FLUSH SCH (08:35)
[2018-03-01] MEDS: BACLOFEN 10 MG TAB PO SCH ×2 (08:35→13:34)
[2018-03-01] MEDS: DIAZEPAM 10 MG TAB PO SCH ×2 (08:35→13:34)
[2018-03-01] MEDS: BUDESONIDE-FORMOTEROL 160/4.5 MCG INHALER INH SCH (08:37)
[2018-03-01] MEDS ORDERED: LEVOFLOXACIN 500 MG TAB PO SCH (09:00)
[2018-03-01] MEDS ORDERED: OXYGENDME NAS.CANULA (12:24)
--- NOTE | 2018-03-01 12:40 | HHI.PR ---
Subjective Remarks seeen with supportive at bedside feeling much better minimal couhg wanting to go home Objective Vitals Vital Signs Date Time Temp Pulse Resp B/P (MAP) Pulse Ox O2 Delivery O2 Flow Rate FiO2 03/01/18 12:00 97.7 59 19 168/83 (111) 98 03/01/18 11:02 2.00 03/01/18 11:02 99 Nasal Cannula 2.00 03/01/18 08:38 Nasal Cannula 2.00 03/01/18 08:00 97.8 56 19 175/85 (115) 95 03/01/18 04:14 97.8 53 16 143/70 (94) 96 03/01/18 04:02 20 03/01/18 03:33 98 Nasal Cannula 2.00 03/01/18 00:22 97.1 51 16 157/77 (103) 98 02/28/18 22:50 20 02/28/18 20:15 Nasal Cannula 2.00 02/28/18 20:00 97.6 55 16 134/66 (88) 97 02/28/18 16:00 98.5 53 17 174/77 (109) 96 02/28/18 15:53 99 Nasal Cannula 2.00 I/O 02/28/18 02/28/18 02/28/18 03/01/18 03/01/18 03/01/18 07:00 15:00 23:00 07:00 15:00 23:00 Intake Total 820 ml 100 ml 2150 ml 760 ml Output Total 10 ml Balance 810 ml 100 ml 2150 ml 760 ml Intake Oral 720 ml 1800 ml 760 ml IV Total 100 ml 100 ml 350 ml Output Urine Total 10 ml # Voids 5 4 # Bowel Movements 4 1 Result Diagram: 02/28/1872702/28/18727 Imaging Last Impressions Chest X-Ray 02/28/18 0600 Signed Impressions: Service Date/Time: Wednesday, February 28, 2018 05:51 - CONCLUSION: Basilar interstitial lung disease with small pleural effusions. Lee Goldman MD Objective Remarks awake and alert,no oral thrush decreased bereath sounds, no rales no wheezes no rhonchi regular rhythm abdomen soft, good bowel sounds extremities no edema A/P Assessment and Plan In summary this is a 53-year-old female patient with history of COPD, depression who was scheduled for cervical spine surgery on the morning of 2017 but then was found to have a fever of 100.9 and an elevated heart rate so was sent to the ER to be evaluated, CXR concerning for PNA and had hypoxia in the ER. (apparently patient has a different hospital encounter with a different H number, imaging available there). Immunity acquired pneumonia versus hospital-acquired pneumonia Chest x-ray from outpatient center reports an infiltrate concerning for aspiration pneumonia She received a dose of Rocephin and azithromycin in the ER continue on azithromycin- = 3 days IV 500 mg on Zosyn- change to po levaquin COPD in exacerbation Duo nebs, albuterol change to po prednisone Hydrocan for cough Incentive spirometer - qualified for home 02 d/w her results of CXR- no mass- finding more of scarring- she ff with Dr. Arana as OP Smoking cessation Diarrhea hold laxatives and stool softers c. diff - negative Start lactinex Depression Continue patient's trazodone and alprazolam & valium chronic pain - patient states ff by pain management- [facility] neurololgy center on Morphine Continue home meds DVT prophylaxis with Lovenox DC today Elliott Osuna MD March 01, 2018 12:40
[2018-03-01] MEDS ORDERED: Budeson-Formot 160-4.5 Mcg Inh INH (12:44)
[2018-03-01] MEDS ORDERED: LEVA500T33 PO (12:44)
[2018-03-01] MEDS ORDERED: LACTOBACILLUS ACIDOPHILUS TAB PO SCH ×2 (12:45)
[2018-03-01] MEDS ORDERED: LACT PO (12:47)
[2018-03-01] MEDS ORDERED: PRED20 PO (12:50)
== END 2018-03-01 16:37 | disposition home or self-care (01) | DRG 190 ==
LOC: NEPE 11:38 → NEDA 14:00 → OBSVTOIN 15:26 → N07B 16:58
PROVIDERS: ADMIT Internal Medicine; ATTEND Internal Medicine
DX: J43.9 Emphysema, unspecified (principal); J18.9 Pneumonia, unspecified organism; I50.9 Heart failure, unspecified; G62.9 Polyneuropathy, unspecified; Z68.1 Body mass index [BMI] 19.9 or less, adult; K59.00 Constipation, unspecified; M79.7 Fibromyalgia; D86.9 Sarcoidosis, unspecified; R63.4 Abnormal weight loss; M54.12 Radiculopathy, cervical region; R19.7 Diarrhea, unspecified; F17.210 Nicotine dependence, cigarettes, uncomplicated; F32.9 Major depressive disorder, single episode, unspecified; F41.9 Anxiety disorder, unspecified; Z86.73 Personal history of transient ischemic attack (TIA), and cerebral infarction without residual deficits; Z88.6 Allergy status to analgesic agent; Z91.041 Radiographic dye allergy status
CPT/HCPCS: 36600; 71045; 80048; 80053; 81001; 82805; 83605; 83735; 85025; 85610; 85730; 87040; 87493; 87804; 94060; 94150; 94618; 94640; 94664; J0456; J0696; J1650; J2270; J2543; J2920; J2930; J7030; J7050; J7608